=== PATIENT | female | born 1945 | race Caucasian/White ===

== ENCOUNTER 2017-09-24 20:59 | Emergency (ER) | payer MEDICARE ==
[2017-09-24 21:23] VITALS: BP 141/72
[2017-09-24] MEDS ORDERED: Phenazopyridine TAB* 100 MG PO ONE (21:38)
[2017-09-24] MEDS ORDERED: Nitrofurantoin Macrocrystals* 100 MG CAP PO ONE (21:38)
--- NOTE | 2017-09-24 21:38 | UC ---
Complaint Female HPI - HPI Summary HPI Summary: Worsening urinary frequency in the last 2 days with lower back and abdominal pain. No fevers. - History Of Current Complaint Stated Complaint: URINARY COMPLAINT Hx Obtained From: Patient Hx Last Menstrual Period: age 40s Onset/Duration: Gradual Onset, Lasting Days - 2, Worse Since - onset Timing: Constant Severity Initially: Mild Severity Currently: Moderate Pain Intensity: 5 Character: Dull, Burning, Cramping Aggravating Factor(s): Urination Associated Signs And Symptoms: Positive: Back Pain - Allergies/Home Medications Allergies/Adverse Reactions: Allergies Allergy/AdvReac Type Severity Reaction Status Date / Time seasonal Allergy Congestion Uncoded 09/24/17 21:13 Home Medications: Home Medications Cranberry 400 mg PO DAILY 09/24/17 [History Confirmed 09/24/17] PMH/Surg Hx/FS Hx/Imm Hx Respiratory History: Asthma - Surgical History Surgical History: Yes Surgery Procedure, Year, and Place: TUBAL. POLYP REMOVED FROM COLONOSCOPY WITH PARTIAL INTESTINAL REMOVAL. BREAST BIOPSY PT UNSURE OF SIDE - Family History Known Family History: Positive: Hypertension, Diabetes - Social History Occupation: Retired Lives: Alone Alcohol Use: Occasionally Substance Use Type: None Smoking Status (MU): Never Smoked Tobacco Review of Systems Genitourinary: Frequency, Urgency Musculoskeletal: Myalgia Is Patient Immunocompromised?: No All Other Systems Reviewed And Are Negative: Yes Physical Exam Triage Information Reviewed: Yes Appearance: Well-Appearing, No Pain Distress, Well-Nourished Vital Signs: Initial Vital Signs Temp 99.2 F 09/24/17 21:15 Pulse 86 09/24/17 21:15 Resp 18 09/24/17 21:15 BP 141/72 09/24/17 21:15 Pulse Ox 98 09/24/17 21:15 Vital Signs Reviewed: Yes Eyes: Positive: Conjunctiva Clear Neck exam: Normal Respiratory Exam: Normal Cardiovascular Exam: Normal Abdomen Description: Negative: Nontender - suprapubic tenderness, CVA Tenderness (R), CVA Tenderness (L) Bowel Sounds: Positive: Present Musculoskeletal Exam: Normal Neurological Exam: Normal Psychological Exam: Normal Skin Exam: Normal Complaint Female Dx - Differential Dx/Diagnosis Differential Diagnosis/HQI/PQRI: Appendicitis, Ureteral Stone, Urinary Tract Infection Provider Diagnoses: Acute cystitis Discharge - Sign-Out/Discharge Documenting (check all that apply): Discharge/Admit/Transfer - Discharge Plan Condition: Stable Disposition: HOME Prescriptions: Nitrofurantoin Monohyd/M-Cryst [Macrobid 100 mg Capsule] 100 mg PO BID #14 cap Phenazopyridine 200 mg (NF) [Pyridium 200 MG tab *] 200 mg PO TID PRN #6 tab PRN Reason: UTI symptoms Patient Education Materials: Urinary Tract Infection in Women (ED), Phenazopyridine (By mouth), Nitrofurantoin Combination (By mouth) Referrals: BASHIR Fernando [Primary Care Provider] - - Billing Disposition and Condition Condition: STABLE Disposition: Home
[2017-09-24] MEDS ORDERED: Nitrofurantoin Macrocrystals* 50 MG CAP ONE (21:45)
== END 2017-09-24 21:54 | disposition home or self-care (01) ==
LOC: UCCORT 20:59
DX: N30.00 Acute cystitis without hematuria (principal)
CPT/HCPCS: 81003; 87077; 87086; 87186; 99212; A9270-GY; G0463